=== PATIENT | female | born 1965 | race Caucasian/White ===

== ENCOUNTER 2018-11-16 08:10 | Emergency (ER) | payer MEDICAID ==
[~2018-11-16] VITALS: Ht 172.7 cm; Wt 99.8 kg
[2018-11-16 08:10] VITALS: BP_SYST 156
[2018-11-16] MEDS ORDERED: KETOROLAC TROMETHAMINE 30 MG VIAL IVP ONE (09:30)
[2018-11-16 10:20] VITALS: BP_SYST 134
== END 2018-11-16 10:20 | disposition home or self-care (01) ==
LOC: SED 08:10
DX: S86.911A Strain of unspecified muscle(s) and tendon(s) at lower leg level, right leg, initial encounter (principal); N20.0 Calculus of kidney; R03.0 Elevated blood-pressure reading, without diagnosis of hypertension; X50.9XXA Other and unspecified overexertion or strenuous movements or postures, initial encounter; Y93.89 Activity, other specified; Y92.89 Other specified places as the place of occurrence of the external cause; Y99.8 Other external cause status
CPT/HCPCS: 73564; 96374; 99283; J1885

== ENCOUNTER 2019-04-23 08:38 | Emergency (ER) | payer MEDICAID ==
[~2019-04-23] VITALS: Ht 167.6 cm; Wt 89.8 kg
[2019-04-23 08:46] VITALS: BP_SYST 163
[2019-04-23] MEDS ORDERED: KETOROLAC TROMETHAMINE 60 MG/2 ML VIAL IM ONE (09:15)
[2019-04-23] MEDS ORDERED: ONDANSETRON 4 MG ODT TAB PO ONE (09:15)
[2019-04-23 09:55] VITALS: BP_SYST 163
== END 2019-04-23 09:57 | disposition home or self-care (01) ==
LOC: SED 08:38
DX: K57.92 Diverticulitis of intestine, part unspecified, without perforation or abscess without bleeding (principal); Z87.442 Personal history of urinary calculi
CPT/HCPCS: 96372; 99283; J1885; Q0162

== ENCOUNTER 2019-10-01 14:48 | Inpatient (IN) | payer MEDICAID ==
[~2019-10-01] VITALS: Ht 167.6 cm; Wt 86.6 kg
[2019-10-01 15:06] VITALS: BP_SYST 157
[2019-10-01] MEDS ORDERED: NACL 0.9% 1,000 ML IV ONE ×2 (15:15→21:30)
[2019-10-01] MEDS ORDERED: KETOROLAC TROMETHAMINE 30 MG VIAL IVP ONE (15:15)
[2019-10-01] MEDS ORDERED: DIPHENHYDRAMINE INJ 50 MG/ML VIAL IVP ONE (15:15)
[2019-10-01] MEDS ORDERED: MORPHINE SULFATE 10 MG/ML VIAL IVP ONE (15:15)
[2019-10-01 15:35] LABS: BASOPHILS # (AUTO) 0.1 K/uL (0.0-0.2); BASOPHILS % (AUTO) 0.8 % (0.0-2.0); EOSINOPHILS % (AUTO) 0.4 % (0.0-4.0); HEMATOCRIT 43.4 % (36-48); HEMOGLOBIN 14.6 g/dL (12.0-16.0); LYMPHOCYTES # (AUTO) 2.3 K/uL (1.0-5.5); LYMPHOCYTES % (AUTO) 22.1 % (20.5-51.5); MEAN CORPUSCULAR HEMOGLOBIN 32 pg (27-31); MEAN CORPUSCULAR HGB CONC 34 % (32-36); MEAN CORPUSCULAR VOLUME 94 fL (79.0-98.0); MONOCYTES # (AUTO) 0.6 K/uL (0.0-1.0); MONOCYTES % (AUTO) 5.4 % (1.7-9.3); NEUTROPHILS # (AUTO) 7.5 K/uL (1.8-7.7); NEUTROPHILS % (AUTO) 71.3 % (40.0-70.0); PLATELET COUNT (AUTO) 297 K/uL (130-430); RED BLOOD CELL COUNT(AUTO) 4.63 MIL/uL (4.2-6.2); RED CELL DISTRIBUTION WIDTH 13.9 % (9.0-15.0); WHITE BLOOD COUNT (AUTO) 10.5 K/uL (4.8-10.8)
[2019-10-01 15:56] LABS: CALCIUM 9.6 mg/dL (8.4-11.0); CREATININE 0.65 mg/dL (0.55-1.30); POTASSIUM 3.2 mmol/L (3.5-5.1)
[2019-10-01 16:03] LABS: ALBUMIN 3.8 g/dL (3.4-4.8)
[2019-10-01 16:05] LABS: BILIRUBIN,URINE NEGATIVE (NEGATIVE); BLOOD, URINE 3+ (NEGATIVE); CLARITY/URINE SL CLOUDY (CLEAR); COLOR,URINE YELLOW (YELLOW); GLUCOSE,URINE NEGATIVE (NEGATIVE); KETONES,URINE NEGATIVE (NEGATIVE); LEUKOCYTE ESTERASE ,URINE 3+ (NEGATIVE); NITRITE, URINE NEGATIVE (NEGATIVE); PROTEIN URINE 2+ (NEGATIVE); UROBILINOGEN,URINE 0.2 (0.2-1.0)
[2019-10-01 16:44] LABS: BACTERIA,URINE FEW /HPF (None Seen); MUCUS,URINE 1+ /LPF (None Seen); RBC,URINE 80-100 /HPF (0-3)
[2019-10-01] MEDS ORDERED: cefTRIAXone 1 GM IVPB PREMIX 50 ML IV ONE (17:15)
[2019-10-01] MEDS ORDERED: POTASSIUM CHLORIDE 20 MEQ TAB.PRT.SR PO ONE (18:00)
[2019-10-01] MEDS ORDERED: HYDR-4272 PO (19:21)
[2019-10-01] MEDS ORDERED: OMEP20CA11 PO (19:21)
[2019-10-01] MEDS ORDERED: FAMO20TA8 PO (19:21)
[2019-10-01 23:23] VITALS: BP_SYST 150
[2019-10-01] MEDS ORDERED: FLU VACC QS2019-20 36MOS UP/PF 60 MCG/0.5 ML SYRINGE I.M. PRN (23:45)
[2019-10-02] VITALS: BP_SYST 122
[2019-10-02] MEDS ORDERED: MORPHINE 2 MG/ML INJ. SYRINGE IVP PRN (07:45)
[2019-10-02 08:00] VITALS: BP_SYST 144
[2019-10-02] MEDS: FAMOTIDINE 20 MG TABLET PO SCH ×2 (08:10→22:03)
[2019-10-02] MEDS ORDERED: CEFTRIAXONE SOD 1 GM/ D5W 50 ML IV SCH ×2 (09:00)
[2019-10-02] MEDS ORDERED: cefTRIAXone 1 GM VIAL IV SCH (09:00)
[2019-10-02] MEDS: NACL 0.9% 1,000 ML IV SCH ×3 (09:19→22:20)
[2019-10-02 12:00] VITALS: BP_SYST 142
[2019-10-02] MEDS: KETOROLAC TROMETHAMINE 15 MG VIAL IVP PRN ×2 (15:56→22:04)
[2019-10-02 16:22] VITALS: BP_SYST 140
[2019-10-02 20:00] VITALS: BP_SYST 136
[2019-10-02 23:29] VITALS: BP_SYST 146
[2019-10-03] VITALS: BP_SYST 146
== END 2019-10-03 00:45 | disposition short-term general hospital (02) | DRG 463 ==
LOC: SED 14:48 → SMU 21:31
PROVIDERS: ADMIT Internal Medicine Hospice and Palliative Medicine; ATTEND Internal Medicine Hospice and Palliative Medicine
DX: N13.6 Pyonephrosis (principal); E87.6 Hypokalemia; Z90.49 Acquired absence of other specified parts of digestive tract; Z90.710 Acquired absence of both cervix and uterus; Z79.899 Other long term (current) drug therapy
CPT/HCPCS: 36415; 80053; 81000-TC; 83690-TC; 85025; 87086; 96361; 96365; 96375; 99285; J0696; J1200; J1885; J2270; J7030; J7060

== ENCOUNTER 2020-08-02 19:41 | Emergency (ER) | payer MEDICAID ==
[~2020-08-02] VITALS: Ht 167.6 cm; Wt 88.9 kg
[~2020-08-02 19:41] MED LIST: FAMO20TA8 PO; HYDR-4272 PO; OMEP20CA15 PO
[2020-08-02 19:45] VITALS: BP_SYST 161
[2020-08-02] MEDS ORDERED: SILVER 44.4 ML GEL.ER.ML. TP ONE (20:30)
[2020-08-02] MEDS ORDERED: MORPHINE 4 MG/ML INJ. SYRINGE IM ONE (20:30)
[2020-08-02] MEDS ORDERED: SILVER SULFADIAZINE 1%, 25 GM TOPICAL CREAM (SSD) TP ONE (20:48)
[2020-08-02 20:51] LABS: BASOPHILS # (AUTO) 0.1 K/uL (0.0-0.2); BASOPHILS % (AUTO) 0.8 % (0.0-2.0); EOSINOPHILS % (AUTO) 0.5 % (0.0-4.0); HEMATOCRIT 41.3 % (36-48); LYMPHOCYTES # (AUTO) 2.2 K/uL (1.0-5.5); LYMPHOCYTES % (AUTO) 30.2 % (20.5-51.5); MEAN CORPUSCULAR HEMOGLOBIN 31 pg (27-31); MEAN CORPUSCULAR HGB CONC 34 % (32-36); MEAN CORPUSCULAR VOLUME 91 fL (79.0-98.0); MONOCYTES # (AUTO) 0.6 K/uL (0.0-1.0); MONOCYTES % (AUTO) 8.1 % (1.7-9.3); NEUTROPHILS # (AUTO) 4.3 K/uL (1.8-7.7); NEUTROPHILS % (AUTO) 60.4 % (40.0-70.0); PLATELET COUNT (AUTO) 275 K/uL (130-430); RED BLOOD CELL COUNT(AUTO) 4.56 MIL/uL (4.2-6.2); RED CELL DISTRIBUTION WIDTH 13.9 % (9.0-15.0); WHITE BLOOD COUNT (AUTO) 7.2 K/uL (4.8-10.8)
[2020-08-02 20:55] LABS: CALCIUM 9.6 mg/dL (8.4-11.0); CREATININE 1.05 mg/dL (0.55-1.30); POTASSIUM 3.5 mmol/L (3.5-5.1)
[2020-08-02 21:01] LABS: ALBUMIN 4.1 g/dL (3.4-4.8); TOTAL BILIRUBIN 0.3 mg/dL (0.0-1.0)
[2020-08-02] MEDS ORDERED: MINERAL OIL 30 ML UDC ONE (21:09)
[2020-08-02 21:18] VITALS: BP_SYST 132
== END 2020-08-02 21:18 | disposition home or self-care (01) ==
LOC: SED 19:41
DX: T23.202A Burn of second degree of left hand, unspecified site, initial encounter (principal); Z79.899 Other long term (current) drug therapy; X12.XXXA Contact with other hot fluids, initial encounter; Y93.89 Activity, other specified; Y92.89 Other specified places as the place of occurrence of the external cause; Y99.8 Other external cause status
CPT/HCPCS: 16000; 36415; 80053; 85025; 96372; 99283; J2270

== ENCOUNTER 2020-10-25 01:01 | Emergency (ER) | payer MEDICAID ==
[~2020-10-25] VITALS: Ht 167.6 cm; Wt 88.9 kg
[2020-10-25 01:31] VITALS: BP_SYST 162
[2020-10-25] MEDS ORDERED: NACL 0.9% 1,000 ML IV ONE (01:45)
[2020-10-25] MEDS ORDERED: ONDANSETRON HCL 4 MG/2 ML VIAL IVP ONE (01:45)
[2020-10-25] MEDS ORDERED: KETOROLAC TROMETHAMINE 30 MG VIAL IVP ONE (01:45)
[2020-10-25 01:48] LABS: BILIRUBIN,URINE NEGATIVE (NEGATIVE); BLOOD, URINE NEGATIVE (NEGATIVE); CLARITY/URINE CLEAR (CLEAR); COLOR,URINE YELLOW (YELLOW); GLUCOSE,URINE TRACE (NEGATIVE); KETONES,URINE NEGATIVE (NEGATIVE); LEUKOCYTE ESTERASE ,URINE NEGATIVE (NEGATIVE); NITRITE, URINE NEGATIVE (NEGATIVE); PROTEIN URINE NEGATIVE (NEGATIVE); UROBILINOGEN,URINE 0.2 (0.2-1.0)
[2020-10-25 02:05] LABS: BASOPHILS # (AUTO) 0.1 K/uL (0.0-0.2); BASOPHILS % (AUTO) 0.7 % (0.0-2.0); EOSINOPHILS % (AUTO) 0.1 % (0.0-4.0); HEMOGLOBIN 14.6 g/dL (12.0-16.0); LYMPHOCYTES # (AUTO) 0.9 K/uL (1.0-5.5); LYMPHOCYTES % (AUTO) 8.3 % (20.5-51.5); MEAN CORPUSCULAR HEMOGLOBIN 30 pg (27-31); MEAN CORPUSCULAR HGB CONC 32 % (32-36); MEAN CORPUSCULAR VOLUME 91 fL (79.0-98.0); MONOCYTES # (AUTO) 0.5 K/uL (0.0-1.0); MONOCYTES % (AUTO) 4.8 % (1.7-9.3); NEUTROPHILS # (AUTO) 9.2 K/uL (1.8-7.7); NEUTROPHILS % (AUTO) 86.1 % (40.0-70.0); PLATELET COUNT (AUTO) 317 K/uL (130-430); RED BLOOD CELL COUNT(AUTO) 4.93 MIL/uL (4.2-6.2); RED CELL DISTRIBUTION WIDTH 14.1 % (9.0-15.0); WHITE BLOOD COUNT (AUTO) 10.7 K/uL (4.8-10.8)
[2020-10-25] MEDS ORDERED: MORPHINE 4 MG/ML INJ. SYRINGE ONE (02:13)
[2020-10-25] MEDS ORDERED: MORPHINE 4 MG/ML INJ. SYRINGE IVP ONE (02:15)
[2020-10-25 02:32] LABS: CALCIUM 9.6 mg/dL (8.4-11.0); CREATININE 0.94 mg/dL (0.55-1.30); POTASSIUM 3.2 mmol/L (3.5-5.1)
[2020-10-25 02:38] LABS: ALBUMIN 4.2 g/dL (3.4-4.8); TOTAL BILIRUBIN 0.4 mg/dL (0.0-1.0)
[2020-10-25] MEDS ORDERED: fentaNYL CITRATE/PF 100 MCG/2 ML AMP IVP ONE (03:15)
[2020-10-25] MEDS ORDERED: fentaNYL CITRATE/PF 100 MCG/2 ML AMP ONE (03:18)
[2020-10-25 04:28] VITALS: BP_SYST 155
== END 2020-10-25 04:28 | disposition home or self-care (01) ==
LOC: SED 01:01
DX: N23 Unspecified renal colic (principal); Z79.899 Other long term (current) drug therapy
CPT/HCPCS: 36415; 76770; 80053; 81003; 85025; 96361; 96374; 96375; 99284; J1885; J2270; J2405; J3010; J7030

== ENCOUNTER 2021-02-26 16:58 | Inpatient (IN) | payer MEDICAID ==
[~2021-02-26] VITALS: Ht 167.6 cm; Wt 90.3 kg
[2021-02-26 17:17] VITALS: BP_SYST 158; BP_SYST 186
[2021-02-26] MEDS ORDERED: NACL 0.9% 1,000 ML IV ONE (17:30)
[2021-02-26] MEDS ORDERED: ONDANSETRON HCL 4 MG/2 ML VIAL IVP ONE ×2 (17:30→18:45)
[2021-02-26] MEDS ORDERED: KETOROLAC TROMETHAMINE 30 MG VIAL IVP ONE (17:30)
[2021-02-26] MEDS ORDERED: MORPHINE 4 MG INJ. 4 MG/ML VIAL IVP ONE (18:45)
[2021-02-26 19:15] LABS: BLOOD, URINE 3+ (NEGATIVE); CLARITY/URINE SL CLOUDY (CLEAR); COLOR,URINE BROWN (YELLOW); GLUCOSE,URINE NEGATIVE (NEGATIVE); KETONES,URINE 1+ (NEGATIVE); NITRITE, URINE NEGATIVE (NEGATIVE); PROTEIN URINE 3+ (NEGATIVE); UROBILINOGEN,URINE 0.2 (0.2-1.0)
[2021-02-26 19:23] LABS: BILIRUBIN,URINE NEGATIVE (NEGATIVE); LEUKOCYTE ESTERASE ,URINE 1+ (NEGATIVE)
[2021-02-26 19:25] LABS: BACTERIA,URINE FEW /HPF (None Seen); MUCUS,URINE None Seen /LPF (None Seen); RBC,URINE >100 /HPF (0-3)
[2021-02-26] MEDS ORDERED: PROCHLORPERAZINE EDISYLATE 10 MG/2 ML VIAL IVP ONE (19:30)
[2021-02-26] MEDS ORDERED: DIPHENHYDRAMINE INJ 50 MG/ML VIAL IVP ONE (19:30)
[2021-02-26 20:12] LABS: BASOPHILS # (AUTO) 0.1 K/uL (0.0-0.2); HEMOGLOBIN 13.8 g/dL (12.0-16.0); NEUTROPHILS # (AUTO) 12.4 K/uL (1.8-7.7)
[2021-02-26 20:16] LABS: CREATININE 1.47 mg/dL (0.55-1.30)
[2021-02-26 20:17] LABS: BASOPHILS % (AUTO) 0.6 % (0.0-2.0); EOSINOPHILS % (AUTO) 0.1 % (0.0-4.0); HEMATOCRIT 40.9 % (36-48); LYMPHOCYTES # (AUTO) 0.9 K/uL (1.0-5.5); LYMPHOCYTES % (AUTO) 6.6 % (20.5-51.5); MEAN CORPUSCULAR HEMOGLOBIN 30 pg (27-31); MEAN CORPUSCULAR HGB CONC 34 % (32-36); MEAN CORPUSCULAR VOLUME 88 fL (79.0-98.0); MONOCYTES # (AUTO) 0.8 K/uL (0.0-1.0); MONOCYTES % (AUTO) 5.6 % (1.7-9.3); NEUTROPHILS % (AUTO) 87.1 % (40.0-70.0); PLATELET COUNT (AUTO) 348 K/uL (130-430); RED BLOOD CELL COUNT(AUTO) 4.65 MIL/uL (4.2-6.2); RED CELL DISTRIBUTION WIDTH 15.5 % (9.0-15.0); WHITE BLOOD COUNT (AUTO) 14.2 K/uL (4.8-10.8)
[2021-02-26 20:22] LABS: ALBUMIN 3.6 g/dL (3.4-4.8); TOTAL BILIRUBIN 0.5 mg/dL (0.0-1.0)
[2021-02-26] MEDS ORDERED: cefTRIAXone 1 GM IVPB PREMIX 50 ML IV ONE (21:00)
[2021-02-26] MEDS ORDERED: SIMV5TAB59 PO (21:46)
[2021-02-26] MEDS ORDERED: CELE100C PO (21:46)
[2021-02-26] MEDS ORDERED: DICY10CA13 PO (21:46)
[2021-02-26] MEDS ORDERED: FENO160T8 PO (21:46)
[2021-02-26 21:54] VITALS: BP_SYST 129
[2021-02-26] MEDS ORDERED: HYDROcodone/ACETAMIN 5-325 MG TAB (NORCO/ VICODIN) PO PRN (22:00)
[2021-02-26] MEDS ORDERED: ALBUTEROL SULFATE 0.083% 2.5 MG/3 ML VIAL.NEB INH PRN (22:00)
[2021-02-26] MEDS ORDERED: DICYCLOMINE HCL 10 MG CAPSULE PO SCH (22:00)
[2021-02-26] MEDS ORDERED: NALOXONE HCL 0.4 MG/ML AMP (NARCAN) IVP PRN (22:00)
[2021-02-26] MEDS ORDERED: ACETAMINOPHEN 325 MG TABLET PO PRN (22:00)
[2021-02-26] MEDS: NACL 0.9% 1,000 ML IV SCH (22:16)
[2021-02-26] MEDS ORDERED: cefTRIAXone 1 GM VIAL ONE (22:59)
[2021-02-26] MEDS ORDERED: POTASSIUM CHLORIDE 10 MEQ TAB.PRT.SR PO ONE (23:00)
[2021-02-26] MEDS ORDERED: PANTOPRAZOLE SODIUM 40 MG TAB PO ONE (23:00)
[2021-02-27 00:27] VITALS: BP_SYST 160
[2021-02-27 02:45] VITALS: BP_SYST 160
[2021-02-27] MEDS: NACL 0.9% 1,000 ML IV SCH ×3 (05:48→22:01)
[2021-02-27] MEDS: MORPHINE 4 MG INJ. 4 MG/ML VIAL IVP PRN ×3 (05:49→20:06)
[2021-02-27 06:37] LABS: BASOPHILS % (AUTO) 0.5 % (0.0-2.0); HEMOGLOBIN 11.8 g/dL (12.0-16.0); LYMPHOCYTES # (AUTO) 1.3 K/uL (1.0-5.5); LYMPHOCYTES % (AUTO) 13.9 % (20.5-51.5); MEAN CORPUSCULAR HEMOGLOBIN 30 pg (27-31); MEAN CORPUSCULAR HGB CONC 34 % (32-36); MEAN CORPUSCULAR VOLUME 89 fL (79.0-98.0); MONOCYTES # (AUTO) 0.7 K/uL (0.0-1.0); NEUTROPHILS # (AUTO) 7.4 K/uL (1.8-7.7); NEUTROPHILS % (AUTO) 78.6 % (40.0-70.0); PLATELET COUNT (AUTO) 258 K/uL (130-430); RED BLOOD CELL COUNT(AUTO) 3.93 MIL/uL (4.2-6.2); RED CELL DISTRIBUTION WIDTH 15.7 % (9.0-15.0); WHITE BLOOD COUNT (AUTO) 9.5 K/uL (4.8-10.8)
[2021-02-27 06:59] LABS: INR 0.9 (0.8-1.2); PROTHROMBIN TIME 9.7 SECS (9.5-12.5)
[2021-02-27 07:57] LABS: ALBUMIN 2.8 g/dL (3.4-4.8); CALCIUM 8.5 mg/dL (8.4-11.0); CREATININE 0.99 mg/dL (0.55-1.30); POTASSIUM 3.7 mmol/L (3.5-5.1)
[2021-02-27 08:00] VITALS: BP_SYST 127
[2021-02-27] MEDS: SIMVASTATIN 10 MG TABLET PO SCH (08:39)
[2021-02-27] MEDS: FENOFIBRATE 160 MG TABLET PO SCH (08:39)
[2021-02-27] MEDS: PANTOPRAZOLE SODIUM 40 MG TAB PO SCH (08:39)
[2021-02-27 08:52] LABS: TOTAL BILIRUBIN 0.2 mg/dL (0.0-1.0)
[2021-02-27 11:57] VITALS: BP_SYST 123
[2021-02-27] MEDS ORDERED: TAMSULOSIN HCL 0.4 MG CAP PO ONE (14:45)
[2021-02-27 16:00] VITALS: BP_SYST 126
[2021-02-27 20:03] VITALS: BP_SYST 153
[2021-02-28 00:38] VITALS: BP_SYST 178
[2021-02-28] MEDS: NACL 0.9% 1,000 ML IV SCH (06:34)
[2021-02-28] MEDS ORDERED: TAMS-11 PO (07:42)
[2021-02-28 08:00] VITALS: BP_SYST 106
[2021-02-28] MEDS: SIMVASTATIN 10 MG TABLET PO SCH (08:02)
[2021-02-28] MEDS: FENOFIBRATE 160 MG TABLET PO SCH (08:02)
[2021-02-28] MEDS: PANTOPRAZOLE SODIUM 40 MG TAB PO SCH (08:02)
[2021-02-28 08:04] LABS: BASOPHILS # (AUTO) 0.1 K/uL (0.0-0.2); EOSINOPHILS # (AUTO) 0.1 K/uL (0.0-0.4); HEMATOCRIT 34.7 % (36-48); HEMOGLOBIN 11.4 g/dL (12.0-16.0); LYMPHOCYTES # (AUTO) 1.4 K/uL (1.0-5.5); LYMPHOCYTES % (AUTO) 26.4 % (20.5-51.5); MEAN CORPUSCULAR HEMOGLOBIN 29 pg (27-31); MEAN CORPUSCULAR HGB CONC 33 % (32-36); MEAN CORPUSCULAR VOLUME 90 fL (79.0-98.0); MONOCYTES # (AUTO) 0.4 K/uL (0.0-1.0); MONOCYTES % (AUTO) 7.4 % (1.7-9.3); NEUTROPHILS # (AUTO) 3.4 K/uL (1.8-7.7); NEUTROPHILS % (AUTO) 64.2 % (40.0-70.0); PLATELET COUNT (AUTO) 221 K/uL (130-430); RED BLOOD CELL COUNT(AUTO) 3.87 MIL/uL (4.2-6.2); RED CELL DISTRIBUTION WIDTH 15.7 % (9.0-15.0); WHITE BLOOD COUNT (AUTO) 5.3 K/uL (4.8-10.8)
[2021-02-28] MEDS: MORPHINE 4 MG INJ. 4 MG/ML VIAL IVP PRN (08:08)
[2021-02-28 08:37] LABS: ALBUMIN 2.7 g/dL (3.4-4.8); CALCIUM 8.3 mg/dL (8.4-11.0); CREATININE 0.98 mg/dL (0.55-1.30); POTASSIUM 3.5 mmol/L (3.5-5.1); TOTAL BILIRUBIN 0.2 mg/dL (0.0-1.0)
[2021-02-28] MEDS ORDERED: TAMSULOSIN HCL 0.4 MG CAP PO SCH (09:00)
[2021-02-28 10:21] VITALS: BP_SYST 106
== END 2021-02-28 10:38 | disposition home or self-care (01) | DRG 463 ==
LOC: SED 16:58 → SMU 20:45
PROVIDERS: ADMIT Internal Medicine Hospice and Palliative Medicine; ATTEND Internal Medicine Hospice and Palliative Medicine
DX: N13.6 Pyonephrosis (principal); R65.11 Systemic inflammatory response syndrome (SIRS) of non-infectious origin with acute organ dysfunction; N17.9 Acute kidney failure, unspecified; Z20.822 Contact with and (suspected) exposure to COVID-19; Z87.442 Personal history of urinary calculi; Z90.710 Acquired absence of both cervix and uterus; Z79.891 Long term (current) use of opiate analgesic; Z79.1 Long term (current) use of non-steroidal anti-inflammatories (NSAID)
CPT/HCPCS: 36415; 76376; 80053; 81000; 83690; 85025; 85610-TC; 87040-TC; 87081; 87086; 96361; 96374; 96375; 96376; 99285; J0696; J0780; J1200; J1885; J2270; J2405; J7030; J7060

== ENCOUNTER 2021-06-12 04:41 | Emergency (ER) | payer MEDICAID ==
[~2021-06-12] VITALS: Ht 167.6 cm; Wt 88.5 kg
[~2021-06-12 04:41] MED LIST changes: +CELE100C PO; +DICY10CA13 PO; -FAMO20TA8 PO; +FENO160T8 PO; -HYDR-4272 PO; +SIMV5TAB59 PO; +TAMS-11 PO
[2021-06-12 04:52] VITALS: BP_SYST 142
[2021-06-12] MEDS ORDERED: NACL 0.9% 1,000 ML IV ONE (05:00)
[2021-06-12] MEDS ORDERED: ONDANSETRON HCL 4 MG/2 ML VIAL IVP ONE (05:00)
[2021-06-12] MEDS ORDERED: KETOROLAC TROMETHAMINE 30 MG VIAL IVP ONE (05:00)
--- NOTE | 2021-06-12 05:20 | NUR ---
Patient to ER bed 8 to gown for evaluation. Side rails up. Report given to CHRISSY NATION.
--- NOTE | 2021-06-12 05:25 | NUR ---
PATIENT AAOX4 AND AMBULATORY FROM HOME C/O RIGHT LOWER BACK PAIN SINCE MONDAY. PER PATIENT SHE HAS HX OF KIDNEY STONES. CURRENTLY STATING 10/10 ON THE PAIN SCALE. +N/V. DENIES ANY SOB OR CHEST PAIN. VSS. WARM BLANKET GIVEN TO PATIENT.
--- NOTE | 2021-06-12 05:30 | NUR ---
Dr. Lopez at bedside for MSE.
--- NOTE | 2021-06-12 05:34 | NUR ---
# 18 gauge angiocath placed to RAC. Use of asceptic technique. Opsite placed over site. Blood return noted. Blood for lab drawn from site. Flushed with 10 cc of normal saline. No evidence of infiltration noted. Patient tolerated well.
--- NOTE | 2021-06-12 06:14 | NUR ---
MEDICATION ADMINISTERED ORDERED.
[2021-06-12] MEDS ORDERED: MORPHINE 4 MG INJ. 4 MG/ML VIAL IVP ONE ×2 (06:15→07:45)
--- NOTE | 2021-06-12 06:19 | NUR ---
PATIENT TAKEN TO US VIA WHEELCHAIR BY [employer]. S.
[2021-06-12 06:32] LABS: BASOPHILS # (AUTO) 0.1 K/uL (0.0-0.2); BASOPHILS % (AUTO) 0.8 % (0.0-2.0); EOSINOPHILS # (AUTO) 0.1 K/uL (0.0-0.4); EOSINOPHILS % (AUTO) 0.8 % (0.0-4.0); HEMATOCRIT 41.1 % (36-48); HEMOGLOBIN 13.8 g/dL (12.0-16.0); LYMPHOCYTES # (AUTO) 1.3 K/uL (1.0-5.5); LYMPHOCYTES % (AUTO) 20.9 % (20.5-51.5); MEAN CORPUSCULAR HEMOGLOBIN 31 pg (27-31); MEAN CORPUSCULAR HGB CONC 34 % (32-36); MEAN CORPUSCULAR VOLUME 93 fL (79.0-98.0); MONOCYTES # (AUTO) 0.4 K/uL (0.0-1.0); MONOCYTES % (AUTO) 6.8 % (1.7-9.3); NEUTROPHILS # (AUTO) 4.5 K/uL (1.8-7.7); NEUTROPHILS % (AUTO) 70.7 % (40.0-70.0); PLATELET COUNT (AUTO) 229 K/uL (130-430); RED BLOOD CELL COUNT(AUTO) 4.43 MIL/uL (4.2-6.2); WHITE BLOOD COUNT (AUTO) 6.4 K/uL (4.8-10.8)
[2021-06-12 06:37] LABS: BILIRUBIN,URINE NEGATIVE (NEGATIVE); BLOOD, URINE 3+ (NEGATIVE); CLARITY/URINE CLEAR (CLEAR); COLOR,URINE YELLOW (YELLOW); GLUCOSE,URINE NEGATIVE (NEGATIVE); KETONES,URINE NEGATIVE (NEGATIVE); LEUKOCYTE ESTERASE ,URINE TRACE (NEGATIVE); NITRITE, URINE NEGATIVE (NEGATIVE); PH,URINE 5.5 (5.0-8.0); PROTEIN URINE NEGATIVE (NEGATIVE); UROBILINOGEN,URINE 0.2 (0.2-1.0)
[2021-06-12 06:43] LABS: CALCIUM 9.1 mg/dL (8.4-11.0); POTASSIUM 3.7 mmol/L (3.5-5.1)
[2021-06-12 06:50] LABS: ALBUMIN 3.5 g/dL (3.4-4.8); TOTAL BILIRUBIN 0.3 mg/dL (0.0-1.0)
[2021-06-12 06:53] LABS: BACTERIA,URINE FEW /HPF (None Seen); MUCUS,URINE 1+ /LPF (None Seen); RBC,URINE 0-3 /HPF (0-3)
--- NOTE | 2021-06-12 07:06 | NUR ---
REPORT GIVEN TO RIOS FLOWER.
--- NOTE | 2021-06-12 07:25 | NUR ---
RN MEETS PT. PT IS RESTING IN BED. PT IS ALERT AND ORIENTED. PAIN MED HAD BEEN GIVEN BY NIGHT NURSE RECENTLY. PT WITH LONG HX OF KIDNEY PROBLEMS. IV IN PLACE.
[2021-06-12] MEDS ORDERED: HYDR-3917 PO (07:37)
[2021-06-12] MEDS ORDERED: IBUP-1969 PO (07:37)
[2021-06-12 08:03] VITALS: BP_SYST 138
== END 2021-06-12 08:01 | disposition home or self-care (01) ==
LOC: SED 04:41
DX: N23 Unspecified renal colic (principal); Z79.899 Other long term (current) drug therapy
CPT/HCPCS: 36415; 76770; 80053; 81000; 83690; 85025; 87086; 96361; 96374; 96375; 96376; 99284; J1885; J2270; J2405; J7030

== ENCOUNTER 2021-10-08 03:11 | Emergency (ER) | payer MEDICAID ==
[~2021-10-08] VITALS: Ht 167.6 cm; Wt 90.3 kg
[~2021-10-08 03:11] MED LIST changes: +HYDR-3917 PO; +IBUP-1969 PO
[2021-10-08 04:40] VITALS: BP_SYST 165
--- NOTE | 2021-10-08 05:21 | NUR ---
Patient to ER bed 7 to gown for evaluation. Side rails up.
[2021-10-08] MEDS ORDERED: METOCLOPRAMIDE HCL 10 MG/2 ML VIAL IVP ONE (05:30)
[2021-10-08] MEDS ORDERED: NACL 0.9% 1,000 ML IV ONE (05:30)
[2021-10-08] MEDS ORDERED: MORPHINE 4 MG INJ. 4 MG/ML VIAL IVP ONE ×2 (05:30→08:00)
--- NOTE | 2021-10-08 05:30 | NUR ---
# 20 gauge angiocath placed to LAC. Use of asceptic technique. Opsite placed over site. Blood return noted. Blood for lab drawn from site. Flushed with 10 cc of normal saline. No evidence of infiltration noted. Patient tolerated well.
[2021-10-08 06:05] LABS: CALCIUM 9.4 mg/dL (8.4-11.0); CREATININE 1.01 mg/dL (0.55-1.30); POTASSIUM 3.6 mmol/L (3.5-5.1)
[2021-10-08 06:07] LABS: BASOPHILS % (AUTO) 0.7 % (0.0-2.0); EOSINOPHILS % (AUTO) 0.6 % (0.0-4.0); HEMOGLOBIN 13.5 g/dL (12.0-16.0); LYMPHOCYTES % (AUTO) 14.2 % (20.5-51.5); MEAN CORPUSCULAR HEMOGLOBIN 30 pg (27-31); MEAN CORPUSCULAR HGB CONC 34 % (32-36); MEAN CORPUSCULAR VOLUME 90 fL (79.0-98.0); MONOCYTES # (AUTO) 0.5 K/uL (0.0-1.0); MONOCYTES % (AUTO) 7.3 % (1.7-9.3); NEUTROPHILS # (AUTO) 5.5 K/uL (1.8-7.7); NEUTROPHILS % (AUTO) 77.2 % (40.0-70.0); PLATELET COUNT (AUTO) 270 K/uL (130-430); RED BLOOD CELL COUNT(AUTO) 4.47 MIL/uL (4.2-6.2); RED CELL DISTRIBUTION WIDTH 13.2 % (9.0-15.0); WHITE BLOOD COUNT (AUTO) 7.2 K/uL (4.8-10.8)
--- NOTE | 2021-10-08 06:08 | NUR ---
ER Dr. Lambert at bedside examining patient.
[2021-10-08 06:10] LABS: ALBUMIN 3.6 g/dL (3.4-4.8); TOTAL BILIRUBIN 0.2 mg/dL (0.0-1.0)
--- NOTE | 2021-10-08 07:10 | NUR ---
Received endorsement from night, alert, orientedx4, no acute distress noted, respiration even/unlabored noted, skin warm/dry to touch. With ongoing IV fluid w/ 0.9% NS 1L free flow infusing well at left AC, G 20 IV cannula, no infiltration noted. Mild right flank pain as claimed
[2021-10-08 07:14] LABS: BILIRUBIN,URINE NEGATIVE (NEGATIVE); BLOOD, URINE 3+ (NEGATIVE); CLARITY/URINE CLEAR (CLEAR); COLOR,URINE YELLOW (YELLOW); GLUCOSE,URINE NEGATIVE (NEGATIVE); KETONES,URINE NEGATIVE (NEGATIVE); LEUKOCYTE ESTERASE ,URINE NEGATIVE (NEGATIVE); NITRITE, URINE NEGATIVE (NEGATIVE); PH,URINE 5.5 (5.0-8.0); PROTEIN URINE NEGATIVE (NEGATIVE); UROBILINOGEN,URINE 0.2 (0.2-1.0)
[2021-10-08 07:19] LABS: BACTERIA,URINE FEW /HPF (None Seen); MUCUS,URINE 1+ /LPF (None Seen); WBC,URINE 0-3 /HPF (0-3)
[2021-10-08] MEDS ORDERED: KETOROLAC TROMETHAMINE 15 MG VIAL IVP ONE (08:00)
--- NOTE | 2021-10-08 08:05 | NUR ---
Complained of right flank pain 7/10, Medication given as ordered. [facility] teaching provided, verbalized understanding
--- NOTE | 2021-10-08 08:40 | NUR ---
Re-assesed by Dr. Lambert, for possible discharge
[2021-10-08] MEDS ORDERED: HYDR-3917 PO (08:52)
[2021-10-08] MEDS ORDERED: METO-290 PO (08:52)
[2021-10-08] MEDS ORDERED: CEPH250C PO (08:52)
[2021-10-08] MEDS ORDERED: cephALEXin 500 MG CAPSULE PO ONE (09:00)
[2021-10-08 09:27] VITALS: BP_SYST 141
--- NOTE | 2021-10-08 09:27 | NUR ---
Patient given written and verbal discharge instructions and verbalizes understanding. ER MD discussed with patient the results and treatment provided. Patient in stable condition. ID arm band removed. IV catheter removed intact and dressing applied, no active bleeding. Rx of Cephalexin, norco, reglan given. Patient educated on pain management and to follow up with PMD. Pain Scale 2/10. Opportunity for questions provided and answered. Medication side effect fact sheet provided.
== END 2021-10-08 09:27 | disposition home or self-care (01) ==
LOC: SED 03:11
DX: N20.0 Calculus of kidney (principal); R82.71 Bacteriuria; R03.0 Elevated blood-pressure reading, without diagnosis of hypertension; Z79.899 Other long term (current) drug therapy
CPT/HCPCS: 36415; 76770; 80053; 81000; 85025; 87086; 96361; 96374; 96375; 96376; 99284; J1885; J2270; J2765; J7030

== ENCOUNTER 2022-10-03 18:27 | Emergency (ER) | payer MEDICAID ==
[~2022-10-03 18:27] MED LIST changes: +CIPR500T5 PO; +METO-290 PO
--- NOTE | 2022-10-03 19:50 | NUR ---
Called patient 3x. Patient left without being seen. No further treatment provided. ER MD aware
== END 2022-10-03 19:50 | disposition left against medical advice (07) ==
LOC: SED 18:27
DX: N28.9 Disorder of kidney and ureter, unspecified (principal); Z53.21 Procedure and treatment not carried out due to patient leaving prior to being seen by health care provider

== ENCOUNTER 2023-10-17 15:44 | Emergency (ER) | payer MEDICAID ==
[~2023-10-17] VITALS: Ht 167.6 cm; Wt 88.9 kg
[~2023-10-17 15:44] MED LIST changes: +DICY-14 PO; -DICY10CA13 PO
[2023-10-17 15:49] VITALS: BP_SYST 165; PULSE 89; RESP 22; TEMP 98.3; O2SAT 100
[2023-10-17] MEDS ORDERED: ONDANSETRON HCL 4 MG/2 ML VIAL IVP ONE (16:45)
[2023-10-17] MEDS ORDERED: NACL 0.9% 1,000 ML IV ONE ×2 (16:45→20:15)
[2023-10-17] MEDS ORDERED: MORPHINE 4 MG INJ. 4 MG/ML VIAL IVP ONE ×2 (16:45→20:15)
[2023-10-17] MEDS ORDERED: KETOROLAC TROMETHAMINE 30 MG VIAL IVP ONE ×2 (16:45→19:45)
[2023-10-17 17:30] LABS: CALCIUM 9.8 mg/dL (8.4-11.0); CREATININE 1.26 mg/dL (0.55-1.30); POTASSIUM 3.4 mmol/L (3.5-5.1)
[2023-10-17 17:36] LABS: BASOPHILS % (AUTO) 0.5 % (0.0-2.0); EOSINOPHILS # (AUTO) 0.1 K/uL (0.0-0.4); EOSINOPHILS % (AUTO) 0.7 % (0.0-4.0); HEMATOCRIT 36.8 % (36-48); HEMOGLOBIN 11.9 g/dL (12.0-16.0); LYMPHOCYTES # (AUTO) 0.7 K/uL (1.0-5.5); LYMPHOCYTES % (AUTO) 7.8 % (20.5-51.5); MEAN CORPUSCULAR HEMOGLOBIN 28 pg (27-31); MEAN CORPUSCULAR HGB CONC 32 % (32-36); MEAN CORPUSCULAR VOLUME 86 fL (79.0-98.0); MONOCYTES # (AUTO) 0.7 K/uL (0.0-1.0); MONOCYTES % (AUTO) 7.9 % (1.7-9.3); NEUTROPHILS # (AUTO) 7.2 K/uL (1.8-7.7); NEUTROPHILS % (AUTO) 83.1 % (40.0-70.0); PLATELET COUNT (AUTO) 275 K/uL (130-430); RED BLOOD CELL COUNT(AUTO) 4.29 MIL/uL (4.2-6.2); RED CELL DISTRIBUTION WIDTH 14.1 % (9.0-15.0); WHITE BLOOD COUNT (AUTO) 8.6 K/uL (4.8-10.8)
[2023-10-17 17:44] LABS: ALBUMIN 3.2 g/dL (3.4-4.8); BILIRUBIN,DIRECT 0.2 mg/dL (0.0-0.3); TOTAL BILIRUBIN 0.4 mg/dL (0.0-1.0); TOTAL PROTEIN, SERUM 7.1 g/dL (6.4-8.3)
[2023-10-17 18:47] LABS: BILIRUBIN,URINE 1+ (NEGATIVE); BLOOD, URINE 2+ (NEGATIVE); COLOR,URINE YELLOW (YELLOW); GLUCOSE,URINE NEGATIVE (NEGATIVE); KETONES,URINE 1+ (NEGATIVE); LEUKOCYTE ESTERASE ,URINE TRACE (NEGATIVE); NITRITE, URINE NEGATIVE (NEGATIVE); PROTEIN URINE 2+ (NEGATIVE); UROBILINOGEN,URINE 0.2 (0.2-1.0)
[2023-10-17 18:53] LABS: CLARITY/URINE HAZY (CLEAR)
[2023-10-17] MEDS ORDERED: ONDA-8 TL (19:09)
[2023-10-17 19:18] LABS: BACTERIA,URINE FEW /HPF (None Seen); RBC,URINE 50-80 /HPF (0-3); WBC,URINE 20-50 /HPF (0-3)
[2023-10-17 19:19] LABS: MUCUS,URINE None Seen /LPF (None Seen)
[2023-10-17] MEDS ORDERED: HYDROcodone/ACETAMIN 5-325 MG TAB (NORCO/ VICODIN) PO ONE (19:45)
[2023-10-18] MEDS ORDERED: MORPHINE 4 MG INJ. 4 MG/ML VIAL ONE (00:11)
[2023-10-18] MEDS ORDERED: CEPH250C PO (00:19)
[2023-10-18 00:40] VITALS: BP_SYST 136; PULSE 88; RESP 18; TEMP 98.3; O2SAT 99
== END 2023-10-18 00:40 | disposition home or self-care (01) ==
LOC: SED 15:44
DX: Z43.6 Encounter for attention to other artificial openings of urinary tract (principal); N39.0 Urinary tract infection, site not specified; R10.9 Unspecified abdominal pain; Z79.899 Other long term (current) drug therapy
CPT/HCPCS: 99285; 74176; 96374; 96375; 96361 ×2; 80076; 80048; 81001; 83690; 85025; 87086; 36415; 76376; 96376 ×2; 81000; 81015; J1885; J2405; J2270 ×2; J7030